=== PATIENT | male | born 1960 | race Caucasian/White ===

== ENCOUNTER 2018-11-09 14:36 | Inpatient (IN) | payer MEDICARE, MEDICAID ==
--- NOTE | 2018-11-09 15:18 | ED Physician Chart ---
ED Chief Complaint/HPI - Patient Information Date Seen:: 11/09/18 Time Seen:: 15:17 Chief Complaint:: Increased agitation History of Present Illness:: 58 yo male was brought from SNF to ER for evaluation of increased agitation, verbally abusiveness and striking out. Allergies:: Allergies Allergy/AdvReac Type Severity Reaction Status Date / Time No Known Allergies Allergy Verified 11/09/18 14:51 Vitals:: Vital Signs - 8 hr 11/09/18 14:51 Temp 98.8 F HR 90 RR 16 BP 119/74 O2 Sat % 96 ED Review of Systems - Review of Systems General/Constitutional: No fever, No chills Skin: No rash Head: No headache Eyes: No pain ENT: No earache Neck: No neck pain Cardio Vascular: No chest pain Pulmonary: No SOB GI: No nausea, No vomiting G/U: No frequency Musculoskeletal: No bone or joint pain Psychiatric: Prior psych history, Anxiety Neurological: No focal symptoms ED Past Medical History - Past Medical History Past Medical History: Dementia Social History: Non Smoker, No Alcohol, No Drug Use Psychiatricy History: Schizophrenia (paranoid), Other (Anxiety, Psychosisi) Family Medical History - Family Member Mother History Unknown: Yes ED Physical Exam - Physical Examination General/Constitutional: Awake, Alert Head: Atraumatic Eyes: PERRL, EOMI Skin: No skin lesions ENMT: Nasal exam nl Neck: No nuchal rigidity Respiratory: No Wheeze/Rhonchi/Rales Cardio Vascular: RRR, No murmur, gallop, rubs, NL S1 S2 GI: No tenderness/rebounding/guarding Extremities: normal strength in all extremities Neuro/Psych: No focal deficits ED Labs/Radiology/EKG Results - Lab Results Results: Laboratory Last Values WBC 6.7 Th/cmm (4.8-10.8) 11/09/18 15:38 RBC 4.41 Mil/cmm (4.30-5.70) 11/09/18 15:38 Hgb 14.3 gm/dL (12-16) 11/09/18 15:38 Hct 42.3 % (41.0-60) 11/09/18 15:38 MCV 96.1 fl (80-99) 11/09/18 15:38 MCH 32.4 pg (26.0-30.0) H 11/09/18 15:38 MCHC Differential 33.7 pg (28.0-36.0) 11/09/18 15:38 RDW 12.9 % (11.5-20.0) 11/09/18 15:38 Plt Count 216 Th/cmm (150-400) 11/09/18 15:38 MPV 6.5 fl 11/09/18 15:38 Neutrophils % 53.7 % (40.0-80.0) 11/09/18 15:38 Lymphocytes % 37.0 % (20.0-50.0) 11/09/18 15:38 Monocytes % 8.2 % (2.0-10.0) 11/09/18 15:38 Eosinophils % 0.7 % (0.0-5.0) 11/09/18 15:38 Basophils % 0.4 % (0.0-2.0) 11/09/18 15:38 Sodium 140 mEq/L (136-145) 11/09/18 15:38 Potassium 4.2 mEq/L (3.5-5.1) 11/09/18 15:38 Chloride 107 mEq/L (98-107) 11/09/18 15:38 Carbon Dioxide 24.6 mEq/L (21.0-31.0) 11/09/18 15:38 Anion Gap 12.6 (7.0-16.0) 11/09/18 15:38 BUN 34 mg/dL (7-25) H 11/09/18 15:38 Creatinine 0.8 mg/dL (0.7-1.3) 11/09/18 15:38 Est GFR ( Amer) > 60.0 ml/min (>90) 11/09/18 15:38 Est GFR (Non-Af Amer) > 60.0 ml/min 11/09/18 15:38 BUN/Creatinine Ratio 42.5 11/09/18 15:38 Glucose 94 mg/dL (70-105) 11/09/18 15:38 Calcium 9.3 mg/dL (8.6-10.3) 11/09/18 15:38 Total Bilirubin 0.3 mg/dL (0.3-1.0) 11/09/18 15:38 AST 13 U/L (13-39) 11/09/18 15:38 ALT 10 U/L (7-52) 11/09/18 15:38 Alkaline Phosphatase 49 U/L (34-104) 11/09/18 15:38 Troponin I 0.01 ng/mL (0.01-0.05) 11/09/18 15:38 B-Natriuretic Peptide 20.9 pg/mL (5.0-100.0) 11/09/18 15:38 Total Protein 6.3 gm/dL (6.0-8.3) 11/09/18 15:38 Albumin 4.0 gm/dL (4.2-5.5) L 11/09/18 15:38 Globulin 2.3 gm/dL 11/09/18 15:38 Albumin/Globulin Ratio 1.7 (1.0-1.8) 11/09/18 15:38 TSH 0.47 uIU/ml (0.34-5.60) 11/09/18 15:38 - Radiology Results Results: CXR: COPD, no focal consolidation - EKG Interpretations EKG Time:: 15:28 Rate & Rhythm: 69 bpm, sinus rhythm, supraventricular bigeminy Intervals: short NV interval Comments:: Left atrial enlargement ED Assessment - Assessment General Assessment: Psychosis Anxiety Dementia Schizophrenia paranoid Assessment/Comments:: CBC, CMP, BNP, PT/PTT, Trop CXR, EKG Admit to [facility] for further evaluation and management ED Septic Shock - . Is Septic Shock (SBP<90, OR Lactate>4 mmol\L) present?: No - <6hrs of presentation: Vital Signs: Vital Signs - 8 hr 11/09/18 14:51 Temp 98.8 F HR 90 RR 16 BP 119/74 O2 Sat % 96 ED Reassessment (Disposition) - Reassessment Reassessment Condition:: Unchanged - Patient Disposition Discharge/Transfer:: [facility] w/in this hosp Admitting Medical Physician:: Diego Harris Admitting Psych Physician:: Indio Davis
[2018-11-09 15:49] LABS: HEMATOCRIT 42.3 % (41.0-60); HEMOGLOBIN 14.3 gm/dL (12-16); MEAN CELL VOLUME 96.1 fl (80-99); MEAN CORPUSCULAR HEMOGLOBIN 32.4 pg (26.0-30.0); MEAN CORPUSCULAR HGB CONC 33.7 pg (28.0-36.0); RED BLOOD COUNT 4.41 Mil/cmm (4.30-5.70); RED CELL DISTRIBUTION WIDTH 12.9 % (11.5-20.0); WHITE BLOOD COUNT 6.7 Th/cmm (4.8-10.8)
[2018-11-09 15:50] LABS: % BASOPHILS 0.4 % (0.0-2.0); % EOSINOPHILS 0.7 % (0.0-5.0); % MONOCYTES 8.2 % (2.0-10.0); % NEUTROPHILS 53.7 % (40.0-80.0); LYMPHOCYTE ABSOLUTE 2.5 Th/cmm (1.5-3.0); MONOCYTE ABSOLUTE 0.5 Th/cmm (0.3-1.0); NEUTROPHILE ABSOLUTE 3.7 Th/cmm (1.8-8.0); PLATELET COUNT 216 Th/cmm (150-400)
[2018-11-09 16:24] LABS: ANION GAP 12.6 (7.0-16.0); BUN - UREA NITROGEN 34 mg/dL (7-25); CARBON DIOXIDE 24.6 mEq/L (21.0-31.0); CHLORIDE 107 mEq/L (98-107); CREATININE - SERUM 0.8 mg/dL (0.7-1.3); GFR AFRICAN-AMERICAN > 60.0 ml/min (>90); GFR NON AFRICAN-AMERICAN > 60.0 ml/min; GLUCOSE 94 mg/dL (70-105); POTASSIUM SERUM 4.2 mEq/L (3.5-5.1); SODIUM SERUM 140 mEq/L (136-145)
[2018-11-09 16:25] LABS: ALB/GLOB RATIO 1.7 (1.0-1.8); ALKALINE PHOSPHATASE 49 U/L (34-104); BILIRUBIN,TOTAL 0.3 mg/dL (0.3-1.0); CALCIUM SERUM 9.3 mg/dL (8.6-10.3); SGOT 13 U/L (13-39); SGPT/ALT 10 U/L (7-52); TOTAL PROTEIN,SERUM 6.3 gm/dL (6.0-8.3)
[2018-11-09 19:57] VITALS: BP 114/70
--- NOTE | 2018-11-09 20:32 | Psychiatric Evaluation ---
DATE OF SERVICE: 11/09/2018 PSYCHIATRIC EVALUATION AND EXAMINATION IDENTIFYING DATA: The patient is a 58-year-old male, resident of [facility]. Information was obtained by directly interviewing the patient as well as reviewing the admission papers and they are reliable. JUSTIFICATION FOR HOSPITALIZATION: The patient is admitted on a voluntary basis in view of his acute psychosis. CHIEF COMPLAINT: "I don't understand ____ one causing the problem." HISTORY OF PRESENT ILLNESS: This is the first psychiatric hospitalization to [facility] for this patient, who is reported to have been out of control and has been screaming and yelling and easily agitated and could not be contained and redirected and hence the patient has been referred over here for stabilization. The patient is reported to have been diagnosed to have schizophrenia, chronic paranoid type and has been maintained on Seroquel. The patient's sleep is noted to be poor. Appetite is noted to be fair. PAST PSYCHIATRIC HISTORY: Details are not known. MEDICAL HISTORY AND PHYSICAL EXAMINATION: Requested to be done by Dr. Diego Harris. SUBSTANCE ABUSE HISTORY: None. PHYSICAL OR SEXUAL ABUSE HISTORY: Details are not known. LEGAL PROBLEMS: None at this time. STRENGTH AND ASSETS: The patient is motivated. MENTAL STATUS EXAMINATION: The patient is a 58-year-old, thin built, superficially cooperative, mumbling to self, not making much sense. This patient is noted to be coherent, but speaks in a low tone. The patient has paranoid delusions, but denies any command hallucinations. Insight and judgment are noted to be very much impaired. Impulse control is noted to be limited. Coping skills are also noted to be limited. The patient is alert and oriented to time, place, person, and situation. The patient is stating that he could not figure it out why he has to be in here. The patient's behavior is reported to be a danger to others. The patient is not suicidal at this time. DIAGNOSTIC IMPRESSION: AXIS I: Schizophrenia, chronic paranoid type with acute exacerbation. AXIS II: None. AXIS III: None. IMMEDIATE TREATMENT PLAN: The patient is going to be observed on the inpatient unit, provided with supportive psychotherapy. The patient is going to be closely monitored. Once stabilized, the patient is going to be discharged to [facility] to be followed up on an outpatient basis. JOB# [id number]
[2018-11-09 21:33] LABS: CHOLESTEROL 153 mg/dL (<200); HDL -HIGH DENSITY LIPOPROTEIN 47 mg/dL (23-92); TRIGLYCERIDES 106 mg/dL (<150)
[2018-11-10 06:05] LABS: A1C 5.5 % (4.8-5.6)
[2018-11-10] MEDS: Benztropine 1 MG TAB PO SCH ×2 (08:23→16:44)
--- NOTE | 2018-11-10 09:23 | Diagnostic Imaging Report ---
CHEST X-RAY: AP view INDICATION: Shortness of breath COMPARISON: None FINDINGS: There is no focal consolidation or pleural effusions The heart is normal in size. Atherosclerosis is noted. There is rightward convexity of the upper thoracic spine which may be due to positioning versus scoliosis. IMPRESSION: No focal consolidation identified. There may be COPD. Atherosclerotic vascular disease.
--- NOTE | 2018-11-10 13:34 | History & Physical ---
ADMIT DATE: 11/09/2018 CHIEF COMPLAINT: Medical evaluation and clearance. HISTORY OF PRESENT ILLNESS: This is a 58-year-old male with history hyperglycemia, psych disorder, dementia, admitted from [facility] secondary to agitated behavior. The patient denies chest pain, shortness of breath. PAST MEDICAL HISTORY: As mentioned in the history of present illness. PAST SURGICAL HISTORY: Abdominal surgery. ALLERGIES: No known drug allergies. MEDICATIONS: The patient's Depakote, Cogentin, Tylenol, Seroquel, simvastatin, niacin, Haldol. FAMILY HISTORY: Noncontributory. SOCIAL HISTORY: The patient is an avid smoker. Does not drink or intravenous drug use, unemployed. REVIEW OF SYSTEMS: GENERAL: Complains not feeling well. HEENT: No blurred vision or pain. LUNGS: No diagnosis of COPD or asthma. Chronic smoker. HEART: Denies hypertension or coronary artery disease. ABDOMEN: No nausea, vomiting, pain. GENITOURINARY: The patient denies increased frequency or dysuria. NEUROLOGIC: No headache, seizure or syncope. PSYCHIATRIC: See above. PHYSICAL EXAMINATION: VITAL SIGNS: Blood pressure 105/64, respirations 20, pulse 60, temperature 97.8. GENERAL: Middle-aged male, appears older. NECK: Supple. LUNGS: Equal breath sounds, otherwise clear to auscultation. HEART: Regular rate and rhythm without appreciable murmur. ABDOMEN: Soft, nontender. Positive bowel sounds. ____. EXTREMITIES: No clubbing, cyanosis or edema. NEUROLOGIC: The patient is alert, awake, ____. Motor and sensory were equal. Gait is within normal range. LABORATORY DATA: WBC 6, hemoglobin 14, platelets 216. Sodium 140, potassium 4.2, BUN 34, creatinine 0.8. Albumin 4.0. TSH within normal range. ASSESSMENT AND PLAN: 1. Renal insufficiency. 2. Dementia. 3. Schizoaffective disorder. 4. Hypercholesterolemia 5. Continue the patient on statin medications. 6. We will review the patient's laboratory. 7. Continue low fat, low cholesterol diet. The patient was counseled to abstain from further smoking. We will continue to follow with you. JOB# [id number]
--- NOTE | 2018-11-10 21:17 | Progress Notes ---
DATE: 11/10/2018 PSYCHIATRIC PROGRESS NOTE SUBJECTIVE: Staff was spoken to. The patient is interviewed. Mood is noted to be irritable. Affect is constricted. The patient is responding to internal stimuli. The patient is not making much sense. The patient has no insight into his illness. The patient has been isolative and withdrawn. ASSESSMENT: The patient is still grossly psychotic. PLAN: To continue the patient with supportive therapy and current medications and follow up. [facility]# [id number]
[2018-11-11] MEDS: Benztropine 1 MG TAB PO SCH ×2 (08:53→16:30)
[2018-11-11] MEDS ORDERED: NIACIN 500 MG PO SCH (09:00)
--- NOTE | 2018-11-11 12:34 | Internal Medicine Prog Note ---
Internal Medicine Subjective - Subjective Patient seen and examined:: with staff, chart reviewed Patient is:: awake, verbal, interactive Patient Complaints of:: sore throat Per staff patient has:: no adverse event, no episodes of fall, poor appetite Internal Medicine Objective - Results Result Diagrams: 11/09/18 15:38 11/09/18 15:38 Recent Labs: Laboratory Last Values WBC 6.7 Th/cmm (4.8-10.8) 11/09/18 15:38 RBC 4.41 Mil/cmm (4.30-5.70) 11/09/18 15:38 Hgb 14.3 gm/dL (12-16) 11/09/18 15:38 Hct 42.3 % (41.0-60) 11/09/18 15:38 MCV 96.1 fl (80-99) 11/09/18 15:38 MCH 32.4 pg (26.0-30.0) H 11/09/18 15:38 MCHC Differential 33.7 pg (28.0-36.0) 11/09/18 15:38 RDW 12.9 % (11.5-20.0) 11/09/18 15:38 Plt Count 216 Th/cmm (150-400) 11/09/18 15:38 MPV 6.5 fl 11/09/18 15:38 Neutrophils % 53.7 % (40.0-80.0) 11/09/18 15:38 Lymphocytes % 37.0 % (20.0-50.0) 11/09/18 15:38 Monocytes % 8.2 % (2.0-10.0) 11/09/18 15:38 Eosinophils % 0.7 % (0.0-5.0) 11/09/18 15:38 Basophils % 0.4 % (0.0-2.0) 11/09/18 15:38 Sodium 140 mEq/L (136-145) 11/09/18 15:38 Potassium 4.2 mEq/L (3.5-5.1) 11/09/18 15:38 Chloride 107 mEq/L (98-107) 11/09/18 15:38 Carbon Dioxide 24.6 mEq/L (21.0-31.0) 11/09/18 15:38 Anion Gap 12.6 (7.0-16.0) 11/09/18 15:38 BUN 34 mg/dL (7-25) H 11/09/18 15:38 Creatinine 0.8 mg/dL (0.7-1.3) 11/09/18 15:38 Est GFR ( Amer) > 60.0 ml/min (>90) 11/09/18 15:38 Est GFR (Non-Af Amer) > 60.0 ml/min 11/09/18 15:38 BUN/Creatinine Ratio 42.5 11/09/18 15:38 Glucose 94 mg/dL (70-105) 11/09/18 15:38 Calcium 9.3 mg/dL (8.6-10.3) 11/09/18 15:38 Total Bilirubin 0.3 mg/dL (0.3-1.0) 11/09/18 15:38 AST 13 U/L (13-39) 11/09/18 15:38 ALT 10 U/L (7-52) 11/09/18 15:38 Alkaline Phosphatase 49 U/L (34-104) 11/09/18 15:38 Troponin I 0.01 ng/mL (0.01-0.05) 11/09/18 15:38 B-Natriuretic Peptide 20.9 pg/mL (5.0-100.0) 11/09/18 15:38 Total Protein 6.3 gm/dL (6.0-8.3) 11/09/18 15:38 Albumin 4.0 gm/dL (4.2-5.5) L 11/09/18 15:38 Globulin 2.3 gm/dL 11/09/18 15:38 Albumin/Globulin Ratio 1.7 (1.0-1.8) 11/09/18 15:38 Triglycerides 106 mg/dL (<150) 11/09/18 15:38 Cholesterol 153 mg/dL (<200) 11/09/18 15:38 LDL Cholesterol Direct 89 mg/dL (75-193) 11/09/18 15:38 HDL Cholesterol 47 mg/dL (23-92) 11/09/18 15:38 TSH 0.47 uIU/ml (0.34-5.60) 11/09/18 15:38 - Physical Exam Vitals and I&O: Vital Signs Temp 97.4 F 11/11/18 06:10 Pulse 67 11/11/18 06:10 Resp 20 11/11/18 08:00 BP 115/56 11/11/18 06:10 Pulse Ox 98 11/11/18 06:10 Intake & Output 11/10/18 11/11/18 11/11/18 18:59 06:59 18:59 Intake Total 240 Balance 240 Intake: Oral 240 Other: # Voids 2 # Bowel Movements 0 Active Medications: Current Medications Acetaminophen (Tylenol) 650 mg PO Q4HR PRN PRN Reason: Mild Pain / Temp above 100 Stop: 01/08/19 20:14 Benztropine Mesylate (Cogentin) 1 mg PO BID SADAF Stop: 01/09/19 08:59 Last Admin: 11/11/18 08:53 Dose: 1 mg Divalproex Sodium (Depakote Dr) 750 mg PO BID SADAF; Protocol Stop: 01/09/19 08:59 Last Admin: 11/11/18 08:54 Dose: 750 mg Lorazepam (Ativan) 0.5 mg PO Q4HR PRN; Protocol PRN Reason: Anxiety Stop: 12/09/18 20:14 Niacin (Vitamin B3) 500 mg PO DAILY SADAF Stop: 01/10/19 08:59 Last Admin: 11/11/18 08:53 Dose: 500 mg Quetiapine Fumarate (Seroquel) 400 mg PO HS SADAF; Protocol Stop: 01/08/19 20:59 Last Admin: 11/10/18 20:42 Dose: 400 mg Simvastatin (Zocor) 20 mg PO HS SADAF; Protocol Stop: 01/09/19 20:59 Last Admin: 11/10/18 20:42 Dose: 20 mg Zolpidem Tartrate (Ambien) 5 mg PO HS PRN PRN Reason: Insomnia Stop: 01/08/19 20:14 General: alert HEENT: NC/AT, PERRLA, EOMI Neck: Supple, No JVD Lungs: wheezing Cardiovascular: RRR, Normal S1, Normal S2 Abdomen: soft, non-tender, thin Extremities: excoriation Neurological: no change Internal Medicine Assmt/Plan - Assessment Assessment: ASSESSMENT AND PLAN: 1. Renal insufficiency. 2. Dementia. 3. Schizoaffective disorder. 4. Hypercholesterolemia - Plan Plan: PLAN: Continue the patient on statin medications. We will review the patient's laboratory. Continue low fat, low cholesterol diet. The patient was counseled to abstain from further smoking. We will continue to follow with you.
--- NOTE | 2018-11-11 20:39 | Consultation ---
DATE OF CONSULTATION: 11/11/2018 REFERRING PHYSICIAN: Magaly Hensley M.D. TYPE OF CONSULTATION: Psychology. HISTORY OF PRESENT ILLNESS: The patient is a 58-year-old male. The following is by record review and by the patient's self report. The patient is a resident of [facility]. The patient is being admitted due to acute psychosis. Upon interview, the patient stated that he does not understand why he is being hospitalized and that he does not understand why he has caused a problem. Staff at the patient's facility reports that he has been screaming and yelling and his behavior was easily agitated and out of control as well as uncontainable. The patient was referred here for stabilization. The patient did not answer the question about suicidal ideation or homicidal ideation, plan or intention. The patient was unable to verbally contract for safety. PAST MEDICAL HISTORY: Please see history and physical by Dr. Harris. PAST PSYCHIATRIC HISTORY: Records indicate the patient has a history of schizophrenia, chronic paranoid type. PAST PSYCHIATRIC HISTORY: The patient has had previous psychiatric hospitalizations. The patient is under the care of Dr. Davis at his placement. The patient has a history of schizophrenia, paranoid type. SUBSTANCE ABUSE HISTORY: The patient denied any history of alcohol, tobacco or illicit drug use. PSYCHOSOCIAL HISTORY: The patient did not answer questions about occupational history or educational history. The patient stated that he has never been and that he has no children. The patient stated no specific rastafarian affiliation. The patient denied any history of physical or sexual abuse or any current legal problems. MENTAL STATUS EXAMINATION: The patient appears to be his stated age. The patient's attitude is superficially cooperative. The patient's eye contact is poor. Speech is soft and slow. The patient is mumbling to himself. The patient is not making much sense during this clinical interview; however, the patient is able to give concrete yes or no answers at times to the clinical interview questions. Mood is irritable. Affect is constricted. Thought process shows to be confused. The patient did not answer the questions about experiencing any auditory or visual hallucinations. There is evidence of some paranoid ideation present. He denied any suicidal ideation, plan or intention. The patient's behavior has been redirectable on the unit. Impulse control is poor. Concentration is poor. Sensorium is alert and oriented x 3. The patient has poor insight into his illness and does not understand why he is being hospitalized. The patient did not participate in the memory assessment. The patient did not participate in the interpretation of proverbs. Insight is poor. Judgment is compromised. DIAGNOSTIC IMPRESSION: AXIS I: History of schizophrenia, chronic paranoid type, in acute exacerbation. AXIS II: Deferred. AXIS III: Per Dr. Harris. TREATMENT PLAN: The patient has been seen by Dr. Hensley for psychiatric evaluation and for the management of the patient's psychotropic medications. We will provide supportive psychotherapy to include reality orientation, differentiation and integration. We will provide daily opportunities for the patient to be able to verbally contract for safety, i.e., no harm to others. The patient's behavior had been reported by the staff as possibly a danger to others. We will provide limit setting. We will provide motivational enhancement for the patient to become compliant and stay compliant with all aspects of his care and treatment. We will provide coping strategies for phase of life issues as well as for chronic severe mental illness. Thank you Dr. Hensley for this consult and the opportunity to participate in this patient's care. JOB# [id number] TAY
--- NOTE | 2018-11-11 20:58 | Progress Notes ---
DATE: 11/11/2018 PSYCHIATRIC PROGRESS NOTE SUBJECTIVE: Staff was spoken to. The patient is interviewed. Mood is noted to be irritable. Affect is constricted. The patient is still responding to internal stimuli. Coping skills at this time are noted to be poor. Insight and judgment are also noted to be limited. The patient has been having difficult time to cope with the stress. The patient is pacing most of the time on the unit. ASSESSMENT: The patient is still psychotic. PLAN: To continue the patient with the supportive therapy and encouraged the patient to verbalize the concerns rather than to act out. [facility]# [id number]
[2018-11-12] MEDS: Benztropine 1 MG TAB PO SCH ×2 (09:40→17:31)
--- NOTE | 2018-11-12 14:00 | Internal Medicine Prog Note ---
Internal Medicine Subjective - Subjective Patient seen and examined:: with staff, chart reviewed Patient is:: awake, verbal, interactive Patient Complaints of:: sore throat Per staff patient has:: no adverse event, no episodes of fall, poor appetite Internal Medicine Objective - Results Result Diagrams: 11/09/18 15:38 11/09/18 15:38 Recent Labs: Laboratory Last Values WBC 6.7 Th/cmm (4.8-10.8) 11/09/18 15:38 RBC 4.41 Mil/cmm (4.30-5.70) 11/09/18 15:38 Hgb 14.3 gm/dL (12-16) 11/09/18 15:38 Hct 42.3 % (41.0-60) 11/09/18 15:38 MCV 96.1 fl (80-99) 11/09/18 15:38 MCH 32.4 pg (26.0-30.0) H 11/09/18 15:38 MCHC Differential 33.7 pg (28.0-36.0) 11/09/18 15:38 RDW 12.9 % (11.5-20.0) 11/09/18 15:38 Plt Count 216 Th/cmm (150-400) 11/09/18 15:38 MPV 6.5 fl 11/09/18 15:38 Neutrophils % 53.7 % (40.0-80.0) 11/09/18 15:38 Lymphocytes % 37.0 % (20.0-50.0) 11/09/18 15:38 Monocytes % 8.2 % (2.0-10.0) 11/09/18 15:38 Eosinophils % 0.7 % (0.0-5.0) 11/09/18 15:38 Basophils % 0.4 % (0.0-2.0) 11/09/18 15:38 Sodium 140 mEq/L (136-145) 11/09/18 15:38 Potassium 4.2 mEq/L (3.5-5.1) 11/09/18 15:38 Chloride 107 mEq/L (98-107) 11/09/18 15:38 Carbon Dioxide 24.6 mEq/L (21.0-31.0) 11/09/18 15:38 Anion Gap 12.6 (7.0-16.0) 11/09/18 15:38 BUN 34 mg/dL (7-25) H 11/09/18 15:38 Creatinine 0.8 mg/dL (0.7-1.3) 11/09/18 15:38 Est GFR ( Amer) > 60.0 ml/min (>90) 11/09/18 15:38 Est GFR (Non-Af Amer) > 60.0 ml/min 11/09/18 15:38 BUN/Creatinine Ratio 42.5 11/09/18 15:38 Glucose 94 mg/dL (70-105) 11/09/18 15:38 Calcium 9.3 mg/dL (8.6-10.3) 11/09/18 15:38 Total Bilirubin 0.3 mg/dL (0.3-1.0) 11/09/18 15:38 AST 13 U/L (13-39) 11/09/18 15:38 ALT 10 U/L (7-52) 11/09/18 15:38 Alkaline Phosphatase 49 U/L (34-104) 11/09/18 15:38 Troponin I 0.01 ng/mL (0.01-0.05) 11/09/18 15:38 B-Natriuretic Peptide 20.9 pg/mL (5.0-100.0) 11/09/18 15:38 Total Protein 6.3 gm/dL (6.0-8.3) 11/09/18 15:38 Albumin 4.0 gm/dL (4.2-5.5) L 11/09/18 15:38 Globulin 2.3 gm/dL 11/09/18 15:38 Albumin/Globulin Ratio 1.7 (1.0-1.8) 11/09/18 15:38 Triglycerides 106 mg/dL (<150) 11/09/18 15:38 Cholesterol 153 mg/dL (<200) 11/09/18 15:38 LDL Cholesterol Direct 89 mg/dL (75-193) 11/09/18 15:38 HDL Cholesterol 47 mg/dL (23-92) 11/09/18 15:38 TSH 0.47 uIU/ml (0.34-5.60) 11/09/18 15:38 - Physical Exam Vitals and I&O: Vital Signs Temp 97.8 F 11/11/18 20:56 Pulse 68 11/11/18 20:56 Resp 19 11/12/18 08:00 BP 112/58 11/11/18 20:56 Pulse Ox 98 11/11/18 20:56 Intake & Output 11/11/18 11/12/18 11/12/18 18:59 06:59 18:59 Intake Total 950 200 Balance 950 200 Intake: Oral 950 200 Other: # Voids 4 # Bowel Movements 1 Active Medications: Current Medications Acetaminophen (Tylenol) 650 mg PO Q4HR PRN PRN Reason: Mild Pain / Temp above 100 Stop: 01/08/19 20:14 Benztropine Mesylate (Cogentin) 1 mg PO BID SADAF Stop: 01/09/19 08:59 Last Admin: 11/12/18 09:40 Dose: Not Given Divalproex Sodium (Depakote Dr) 750 mg PO BID SADAF; Protocol Stop: 01/09/19 08:59 Last Admin: 11/12/18 09:41 Dose: Not Given Lorazepam (Ativan) 0.5 mg PO Q4HR PRN; Protocol PRN Reason: Anxiety Stop: 12/09/18 20:14 Niacin (Vitamin B3) 500 mg PO DAILY SADAF Stop: 01/10/19 08:59 Last Admin: 11/12/18 09:40 Dose: Not Given Quetiapine Fumarate (Seroquel) 400 mg PO HS SADAF; Protocol Stop: 01/08/19 20:59 Last Admin: 11/11/18 20:53 Dose: 400 mg Simvastatin (Zocor) 20 mg PO HS SADAF; Protocol Stop: 01/09/19 20:59 Last Admin: 11/11/18 20:53 Dose: 20 mg Zolpidem Tartrate (Ambien) 5 mg PO HS PRN PRN Reason: Insomnia Stop: 01/08/19 20:14 General: alert HEENT: NC/AT, PERRLA, EOMI Neck: Supple, No JVD Lungs: wheezing Cardiovascular: RRR, Normal S1, Normal S2 Abdomen: soft, non-tender, thin Extremities: excoriation Neurological: no change Internal Medicine Assmt/Plan - Assessment Assessment: ASSESSMENT AND PLAN: 1. Renal insufficiency. 2. Dementia. 3. Schizoaffective disorder. 4. Hypercholesterolemia - Plan Plan: PLAN: Continue the patient on statin medications. We will review the patient's laboratory. Continue low fat, low cholesterol diet. The patient was counseled to abstain from further smoking. We will continue to follow with you.
--- NOTE | 2018-11-12 18:48 | Progress Notes ---
DATE: 11/12/2018 SUBJECTIVE: Staff was spoken to. The patient is interviewed. Mood is noted to be irritable. Coping skills at this time are noted to be poor. Insight and judgment are noted to be poor. The patient has been getting easily agitated and the patient has been given a dose of Ativan and has been able to calm down. ASSESSMENT: The patient is still psychotic. PLAN: To continue the patient with the supportive therapy and followup. [facility]# [id number]
[2018-11-13] MEDS: Benztropine 1 MG TAB PO SCH ×2 (08:58→16:48)
--- NOTE | 2018-11-13 14:04 | Internal Medicine Prog Note ---
Internal Medicine Subjective - Subjective Patient seen and examined:: with staff, chart reviewed Patient is:: awake, verbal, interactive Patient Complaints of:: sore throat Per staff patient has:: no adverse event, no episodes of fall, poor appetite Internal Medicine Objective - Results Result Diagrams: 11/09/18 15:38 11/09/18 15:38 Recent Labs: Laboratory Last Values WBC 6.7 Th/cmm (4.8-10.8) 11/09/18 15:38 RBC 4.41 Mil/cmm (4.30-5.70) 11/09/18 15:38 Hgb 14.3 gm/dL (12-16) 11/09/18 15:38 Hct 42.3 % (41.0-60) 11/09/18 15:38 MCV 96.1 fl (80-99) 11/09/18 15:38 MCH 32.4 pg (26.0-30.0) H 11/09/18 15:38 MCHC Differential 33.7 pg (28.0-36.0) 11/09/18 15:38 RDW 12.9 % (11.5-20.0) 11/09/18 15:38 Plt Count 216 Th/cmm (150-400) 11/09/18 15:38 MPV 6.5 fl 11/09/18 15:38 Neutrophils % 53.7 % (40.0-80.0) 11/09/18 15:38 Lymphocytes % 37.0 % (20.0-50.0) 11/09/18 15:38 Monocytes % 8.2 % (2.0-10.0) 11/09/18 15:38 Eosinophils % 0.7 % (0.0-5.0) 11/09/18 15:38 Basophils % 0.4 % (0.0-2.0) 11/09/18 15:38 Sodium 140 mEq/L (136-145) 11/09/18 15:38 Potassium 4.2 mEq/L (3.5-5.1) 11/09/18 15:38 Chloride 107 mEq/L (98-107) 11/09/18 15:38 Carbon Dioxide 24.6 mEq/L (21.0-31.0) 11/09/18 15:38 Anion Gap 12.6 (7.0-16.0) 11/09/18 15:38 BUN 34 mg/dL (7-25) H 11/09/18 15:38 Creatinine 0.8 mg/dL (0.7-1.3) 11/09/18 15:38 Est GFR ( Amer) > 60.0 ml/min (>90) 11/09/18 15:38 Est GFR (Non-Af Amer) > 60.0 ml/min 11/09/18 15:38 BUN/Creatinine Ratio 42.5 11/09/18 15:38 Glucose 94 mg/dL (70-105) 11/09/18 15:38 Calcium 9.3 mg/dL (8.6-10.3) 11/09/18 15:38 Total Bilirubin 0.3 mg/dL (0.3-1.0) 11/09/18 15:38 AST 13 U/L (13-39) 11/09/18 15:38 ALT 10 U/L (7-52) 11/09/18 15:38 Alkaline Phosphatase 49 U/L (34-104) 11/09/18 15:38 Troponin I 0.01 ng/mL (0.01-0.05) 11/09/18 15:38 B-Natriuretic Peptide 20.9 pg/mL (5.0-100.0) 11/09/18 15:38 Total Protein 6.3 gm/dL (6.0-8.3) 11/09/18 15:38 Albumin 4.0 gm/dL (4.2-5.5) L 11/09/18 15:38 Globulin 2.3 gm/dL 11/09/18 15:38 Albumin/Globulin Ratio 1.7 (1.0-1.8) 11/09/18 15:38 Triglycerides 106 mg/dL (<150) 11/09/18 15:38 Cholesterol 153 mg/dL (<200) 11/09/18 15:38 LDL Cholesterol Direct 89 mg/dL (75-193) 11/09/18 15:38 HDL Cholesterol 47 mg/dL (23-92) 11/09/18 15:38 TSH 0.47 uIU/ml (0.34-5.60) 11/09/18 15:38 - Physical Exam Vitals and I&O: Vital Signs Temp 97.4 F 11/13/18 06:20 Pulse 64 11/13/18 06:20 Resp 20 11/13/18 10:33 BP 102/63 11/13/18 06:20 Pulse Ox 97 11/13/18 06:20 Intake & Output 11/12/18 11/13/18 11/13/18 18:59 06:59 18:59 Intake Total 1200 120 Balance 1200 120 Intake: Oral 1200 120 Other: # Voids 2 # Bowel Movements 1 Stool Characteristics Formed Brown Active Medications: Current Medications Acetaminophen (Tylenol) 650 mg PO Q4HR PRN PRN Reason: Mild Pain / Temp above 100 Stop: 01/08/19 20:14 Benztropine Mesylate (Cogentin) 1 mg PO BID SADAF Stop: 01/09/19 08:59 Last Admin: 11/13/18 08:58 Dose: 1 mg Divalproex Sodium (Depakote Dr) 750 mg PO BID SADAF; Protocol Stop: 01/09/19 08:59 Last Admin: 11/13/18 08:57 Dose: 750 mg Lorazepam (Ativan) 0.5 mg PO Q4HR PRN; Protocol PRN Reason: Anxiety Stop: 12/09/18 20:14 Last Admin: 11/13/18 08:57 Dose: 0.5 mg Niacin (Vitamin B3) 500 mg PO DAILY SADAF Stop: 01/10/19 08:59 Last Admin: 11/13/18 08:57 Dose: 500 mg Quetiapine Fumarate (Seroquel) 400 mg PO HS SADAF; Protocol Stop: 01/08/19 20:59 Last Admin: 11/12/18 21:30 Dose: 400 mg Simvastatin (Zocor) 20 mg PO HS SADAF; Protocol Stop: 01/09/19 20:59 Last Admin: 11/12/18 21:31 Dose: 20 mg Zolpidem Tartrate (Ambien) 5 mg PO HS PRN PRN Reason: Insomnia Stop: 01/08/19 20:14 General: alert HEENT: NC/AT, PERRLA, EOMI Neck: Supple, No JVD Lungs: wheezing Cardiovascular: RRR, Normal S1, Normal S2 Abdomen: soft, non-tender, thin Extremities: excoriation Neurological: no change Internal Medicine Assmt/Plan - Assessment Assessment: ASSESSMENT AND PLAN: 1. Renal insufficiency. 2. Dementia. 3. Schizoaffective disorder. 4. Hypercholesterolemia - Plan Plan: PLAN: Continue the patient on statin medications. We will review the patient's laboratory. Continue low fat, low cholesterol diet. The patient was counseled to abstain from further smoking. We will continue to follow with you.
--- NOTE | 2018-11-13 14:05 | Progress Notes ---
DATE: 11/13/2018 SUBJECTIVE: Staff was spoken to. The patient is interviewed. Mood is noted to be irritable. Affect is constricted. Coping skills are noted to be still poor. The patient continues to be paranoid and pacing most of the time on the unit. The patient has no insight into his illness. The patient is still responding to the internal stimuli. The patient is currently on Seroquel, which she has been getting at 400 mg and the patient is going to be continued with these things and followed up. ASSESSMENT: The patient is still psychotic. PLAN: To continue the patient with the supportive therapy and followup. JOB# [id number]
[2018-11-14] MEDS: Benztropine 1 MG TAB PO SCH ×2 (08:02→16:42)
--- NOTE | 2018-11-14 12:39 | Internal Medicine Prog Note ---
Internal Medicine Subjective - Subjective Patient seen and examined:: with staff, chart reviewed Patient is:: awake, verbal, interactive Patient Complaints of:: sore throat Per staff patient has:: no adverse event, no episodes of fall, poor appetite Internal Medicine Objective - Results Result Diagrams: 11/09/18 15:38 11/09/18 15:38 Recent Labs: Laboratory Last Values WBC 6.7 Th/cmm (4.8-10.8) 11/09/18 15:38 RBC 4.41 Mil/cmm (4.30-5.70) 11/09/18 15:38 Hgb 14.3 gm/dL (12-16) 11/09/18 15:38 Hct 42.3 % (41.0-60) 11/09/18 15:38 MCV 96.1 fl (80-99) 11/09/18 15:38 MCH 32.4 pg (26.0-30.0) H 11/09/18 15:38 MCHC Differential 33.7 pg (28.0-36.0) 11/09/18 15:38 RDW 12.9 % (11.5-20.0) 11/09/18 15:38 Plt Count 216 Th/cmm (150-400) 11/09/18 15:38 MPV 6.5 fl 11/09/18 15:38 Neutrophils % 53.7 % (40.0-80.0) 11/09/18 15:38 Lymphocytes % 37.0 % (20.0-50.0) 11/09/18 15:38 Monocytes % 8.2 % (2.0-10.0) 11/09/18 15:38 Eosinophils % 0.7 % (0.0-5.0) 11/09/18 15:38 Basophils % 0.4 % (0.0-2.0) 11/09/18 15:38 Sodium 140 mEq/L (136-145) 11/09/18 15:38 Potassium 4.2 mEq/L (3.5-5.1) 11/09/18 15:38 Chloride 107 mEq/L (98-107) 11/09/18 15:38 Carbon Dioxide 24.6 mEq/L (21.0-31.0) 11/09/18 15:38 Anion Gap 12.6 (7.0-16.0) 11/09/18 15:38 BUN 34 mg/dL (7-25) H 11/09/18 15:38 Creatinine 0.8 mg/dL (0.7-1.3) 11/09/18 15:38 Est GFR ( Amer) > 60.0 ml/min (>90) 11/09/18 15:38 Est GFR (Non-Af Amer) > 60.0 ml/min 11/09/18 15:38 BUN/Creatinine Ratio 42.5 11/09/18 15:38 Glucose 94 mg/dL (70-105) 11/09/18 15:38 Calcium 9.3 mg/dL (8.6-10.3) 11/09/18 15:38 Total Bilirubin 0.3 mg/dL (0.3-1.0) 11/09/18 15:38 AST 13 U/L (13-39) 11/09/18 15:38 ALT 10 U/L (7-52) 11/09/18 15:38 Alkaline Phosphatase 49 U/L (34-104) 11/09/18 15:38 Troponin I 0.01 ng/mL (0.01-0.05) 11/09/18 15:38 B-Natriuretic Peptide 20.9 pg/mL (5.0-100.0) 11/09/18 15:38 Total Protein 6.3 gm/dL (6.0-8.3) 11/09/18 15:38 Albumin 4.0 gm/dL (4.2-5.5) L 11/09/18 15:38 Globulin 2.3 gm/dL 11/09/18 15:38 Albumin/Globulin Ratio 1.7 (1.0-1.8) 11/09/18 15:38 Triglycerides 106 mg/dL (<150) 11/09/18 15:38 Cholesterol 153 mg/dL (<200) 11/09/18 15:38 LDL Cholesterol Direct 89 mg/dL (75-193) 11/09/18 15:38 HDL Cholesterol 47 mg/dL (23-92) 11/09/18 15:38 TSH 0.47 uIU/ml (0.34-5.60) 11/09/18 15:38 - Physical Exam Vitals and I&O: Vital Signs Temp 97 F 11/14/18 06:34 Pulse 62 11/14/18 06:34 Resp 20 11/14/18 06:34 BP 103/61 11/14/18 06:34 Pulse Ox 98 11/14/18 06:34 Intake & Output 11/13/18 11/14/18 11/14/18 18:59 06:59 18:59 Intake Total 180 Balance 180 Intake: Oral 180 Other: # Voids 1 # Bowel Movements 1 Stool Characteristics Formed Brown Active Medications: Current Medications Acetaminophen (Tylenol) 650 mg PO Q4HR PRN PRN Reason: Mild Pain / Temp above 100 Stop: 01/08/19 20:14 Benztropine Mesylate (Cogentin) 1 mg PO BID SADAF Stop: 01/09/19 08:59 Last Admin: 11/14/18 08:02 Dose: 1 mg Divalproex Sodium (Depakote Dr) 750 mg PO BID SADAF; Protocol Stop: 01/09/19 08:59 Last Admin: 11/14/18 08:02 Dose: 750 mg Lorazepam (Ativan) 0.5 mg PO Q4HR PRN; Protocol PRN Reason: Anxiety Stop: 12/09/18 20:14 Last Admin: 11/13/18 08:57 Dose: 0.5 mg Niacin (Vitamin B3) 500 mg PO DAILY SADAF Stop: 01/10/19 08:59 Last Admin: 11/14/18 08:02 Dose: 500 mg Quetiapine Fumarate (Seroquel) 400 mg PO HS SADAF; Protocol Stop: 01/08/19 20:59 Last Admin: 11/13/18 20:46 Dose: 400 mg Simvastatin (Zocor) 20 mg PO HS SADAF; Protocol Stop: 01/09/19 20:59 Last Admin: 11/13/18 20:46 Dose: 20 mg Zolpidem Tartrate (Ambien) 5 mg PO HS PRN PRN Reason: Insomnia Stop: 01/08/19 20:14 General: alert HEENT: NC/AT, PERRLA, EOMI Neck: Supple, No JVD Lungs: wheezing Cardiovascular: RRR, Normal S1, Normal S2 Abdomen: soft, non-tender, thin Extremities: excoriation Neurological: no change Internal Medicine Assmt/Plan - Assessment Assessment: ASSESSMENT AND PLAN: 1. Renal insufficiency. 2. Dementia. 3. Schizoaffective disorder. 4. Hypercholesterolemia - Plan Plan: PLAN: Continue the patient on statin medications. We will review the patient's laboratory. Continue low fat, low cholesterol diet. The patient was counseled to abstain from further smoking. We will continue to follow with you.
--- NOTE | 2018-11-15 01:47 | Progress Notes ---
DATE: 11/14/2018 SUBJECTIVE: Staff was spoken to. The patient is interviewed. Mood is noted to be anxious. Insight and judgment are noted to be improving. Impulse control seems to be fair today. The patient is still responding to internal stimuli. No side effects to the medications are noted. The patient is reluctant to participate in any of the group. The patient is currently on 400 mg of the Seroquel and I have requested the patient to have the valproic acid level and it is still pending at this time. JOB# [id number]
[2018-11-15] MEDS: Benztropine 1 MG TAB PO SCH ×2 (08:27→17:18)
--- NOTE | 2018-11-15 12:17 | Internal Medicine Prog Note ---
Internal Medicine Subjective - Subjective Patient seen and examined:: with staff, chart reviewed Patient is:: awake, verbal, interactive Patient Complaints of:: sore throat Per staff patient has:: no adverse event, no episodes of fall, poor appetite Internal Medicine Objective - Results Result Diagrams: 11/09/18 15:38 11/09/18 15:38 Recent Labs: Laboratory Last Values WBC 6.7 Th/cmm (4.8-10.8) 11/09/18 15:38 RBC 4.41 Mil/cmm (4.30-5.70) 11/09/18 15:38 Hgb 14.3 gm/dL (12-16) 11/09/18 15:38 Hct 42.3 % (41.0-60) 11/09/18 15:38 MCV 96.1 fl (80-99) 11/09/18 15:38 MCH 32.4 pg (26.0-30.0) H 11/09/18 15:38 MCHC Differential 33.7 pg (28.0-36.0) 11/09/18 15:38 RDW 12.9 % (11.5-20.0) 11/09/18 15:38 Plt Count 216 Th/cmm (150-400) 11/09/18 15:38 MPV 6.5 fl 11/09/18 15:38 Neutrophils % 53.7 % (40.0-80.0) 11/09/18 15:38 Lymphocytes % 37.0 % (20.0-50.0) 11/09/18 15:38 Monocytes % 8.2 % (2.0-10.0) 11/09/18 15:38 Eosinophils % 0.7 % (0.0-5.0) 11/09/18 15:38 Basophils % 0.4 % (0.0-2.0) 11/09/18 15:38 Sodium 140 mEq/L (136-145) 11/09/18 15:38 Potassium 4.2 mEq/L (3.5-5.1) 11/09/18 15:38 Chloride 107 mEq/L (98-107) 11/09/18 15:38 Carbon Dioxide 24.6 mEq/L (21.0-31.0) 11/09/18 15:38 Anion Gap 12.6 (7.0-16.0) 11/09/18 15:38 BUN 34 mg/dL (7-25) H 11/09/18 15:38 Creatinine 0.8 mg/dL (0.7-1.3) 11/09/18 15:38 Est GFR ( Amer) > 60.0 ml/min (>90) 11/09/18 15:38 Est GFR (Non-Af Amer) > 60.0 ml/min 11/09/18 15:38 BUN/Creatinine Ratio 42.5 11/09/18 15:38 Glucose 94 mg/dL (70-105) 11/09/18 15:38 Calcium 9.3 mg/dL (8.6-10.3) 11/09/18 15:38 Total Bilirubin 0.3 mg/dL (0.3-1.0) 11/09/18 15:38 AST 13 U/L (13-39) 11/09/18 15:38 ALT 10 U/L (7-52) 11/09/18 15:38 Alkaline Phosphatase 49 U/L (34-104) 11/09/18 15:38 Troponin I 0.01 ng/mL (0.01-0.05) 11/09/18 15:38 B-Natriuretic Peptide 20.9 pg/mL (5.0-100.0) 11/09/18 15:38 Total Protein 6.3 gm/dL (6.0-8.3) 11/09/18 15:38 Albumin 4.0 gm/dL (4.2-5.5) L 11/09/18 15:38 Globulin 2.3 gm/dL 11/09/18 15:38 Albumin/Globulin Ratio 1.7 (1.0-1.8) 11/09/18 15:38 Triglycerides 106 mg/dL (<150) 11/09/18 15:38 Cholesterol 153 mg/dL (<200) 11/09/18 15:38 LDL Cholesterol Direct 89 mg/dL (75-193) 11/09/18 15:38 HDL Cholesterol 47 mg/dL (23-92) 11/09/18 15:38 TSH 0.47 uIU/ml (0.34-5.60) 11/09/18 15:38 - Physical Exam Vitals and I&O: Vital Signs Temp 97.5 F 11/15/18 06:17 Pulse 53 11/15/18 06:17 Resp 18 11/15/18 10:47 BP 104/57 11/15/18 06:17 Pulse Ox 97 11/15/18 06:17 Intake & Output 11/14/181811/15/18 18:59 06:59 18:59 Intake Total 160 Balance 160 Intake: Oral 160 Other: # Voids 2 # Bowel Movements 0 Active Medications: Current Medications Acetaminophen (Tylenol) 650 mg PO Q4HR PRN PRN Reason: Mild Pain / Temp above 100 Stop: 01/08/19 20:14 Benztropine Mesylate (Cogentin) 1 mg PO BID SADAF Stop: 01/09/19 08:59 Last Admin: 11/15/18 08:27 Dose: 1 mg Divalproex Sodium (Depakote Dr) 750 mg PO BID SADAF; Protocol Stop: 01/09/19 08:59 Last Admin: 11/15/18 08:24 Dose: 750 mg Lorazepam (Ativan) 0.5 mg PO Q4HR PRN; Protocol PRN Reason: Anxiety Stop: 12/09/18 20:14 Last Admin: 11/15/18 08:27 Dose: 0.5 mg Niacin (Vitamin B3) 500 mg PO DAILY SADAF Stop: 01/10/19 08:59 Last Admin: 11/15/18 08:27 Dose: 500 mg Quetiapine Fumarate (Seroquel) 400 mg PO HS SADAF; Protocol Stop: 01/08/19 20:59 Last Admin: 11/14/18 20:49 Dose: 400 mg Simvastatin (Zocor) 20 mg PO HS SADAF; Protocol Stop: 01/09/19 20:59 Last Admin: 11/14/18 20:49 Dose: 20 mg Zolpidem Tartrate (Ambien) 5 mg PO HS PRN PRN Reason: Insomnia Stop: 01/08/19 20:14 General: alert HEENT: NC/AT, PERRLA, EOMI Neck: Supple, No JVD Lungs: wheezing Cardiovascular: RRR, Normal S1, Normal S2 Abdomen: soft, non-tender, thin Extremities: excoriation Neurological: no change Internal Medicine Assmt/Plan - Assessment Assessment: ASSESSMENT AND PLAN: 1. Renal insufficiency. 2. Dementia. 3. Schizoaffective disorder. 4. Hypercholesterolemia - Plan Plan: PLAN: Continue the patient on statin medications. We will review the patient's laboratory. Continue low fat, low cholesterol diet. The patient was counseled to abstain from further smoking. We will continue to follow with you.
--- NOTE | 2018-11-15 23:02 | Progress Notes ---
DATE: 11/15/2018 PSYCHIATRIC PROGRESS NOTE SUBJECTIVE: Staff was spoken to. The patient is interviewed. Mood is noted to be irritable. Affect is constricted. The patient's paranoia is noted, but the patient denies any command hallucinations. The patient is able to comply with the medication so far. No side effects to the medications are noted. ASSESSMENT: The patient is still psychotic. PLAN: To continue the patient with the supportive therapy, encouraged the patient to verbalize the concerns rather than to act out. Please note that the patient is not ready to be discharged to a lower level of care yet. JOB# [id number]
--- NOTE | 2018-11-16 00:06 | Progress Notes ---
DATE: 11/14/2018 PSYCHOLOGY PROGRESS NOTE. SUBJECTIVE: The patient is seen and is interviewed. Case is discussed with staff. The patient presents as anxious and somewhat restless. The staff reports the patient continues to talk to himself. The patient apparently is responding to internal stimuli. The patient also has been isolative and not participating in the milieu therapy. The patient states that he does not feel he needs to be here. OBJECTIVE: Mood is anxious. Affect is mood congruent. Thought process shows to be somewhat confused. The patient denied any hallucinations or delusions, however, the patient is responding to an inner dialogue. The patient is taking his p.o. medications. ASSESSMENT AND PLAN: The patient's psychosis persists. We provided reality orientation, differentiation and integration. We provided positive reinforcement for the patient to stay compliant with his care and treatment. We will follow up in 2 days to continue the present treatment if the patient is still admitted on the unit. JOB# [id number] TAY
[2018-11-16] MEDS: Benztropine 1 MG TAB PO SCH ×2 (08:16→15:59)
[2018-11-16] MEDS: DIVALPROEX PO SCH ×2 (08:16→15:59)
--- NOTE | 2018-11-16 12:20 | Internal Medicine Prog Note ---
Internal Medicine Subjective - Subjective Patient seen and examined:: with staff, chart reviewed Patient is:: awake, verbal, interactive Patient Complaints of:: sore throat Per staff patient has:: no adverse event, no episodes of fall, poor appetite Internal Medicine Objective - Results Result Diagrams: 11/09/18 15:38 11/09/18 15:38 Recent Labs: Laboratory Last Values WBC 6.7 Th/cmm (4.8-10.8) 11/09/18 15:38 RBC 4.41 Mil/cmm (4.30-5.70) 11/09/18 15:38 Hgb 14.3 gm/dL (12-16) 11/09/18 15:38 Hct 42.3 % (41.0-60) 11/09/18 15:38 MCV 96.1 fl (80-99) 11/09/18 15:38 MCH 32.4 pg (26.0-30.0) H 11/09/18 15:38 MCHC Differential 33.7 pg (28.0-36.0) 11/09/18 15:38 RDW 12.9 % (11.5-20.0) 11/09/18 15:38 Plt Count 216 Th/cmm (150-400) 11/09/18 15:38 MPV 6.5 fl 11/09/18 15:38 Neutrophils % 53.7 % (40.0-80.0) 11/09/18 15:38 Lymphocytes % 37.0 % (20.0-50.0) 11/09/18 15:38 Monocytes % 8.2 % (2.0-10.0) 11/09/18 15:38 Eosinophils % 0.7 % (0.0-5.0) 11/09/18 15:38 Basophils % 0.4 % (0.0-2.0) 11/09/18 15:38 Sodium 140 mEq/L (136-145) 11/09/18 15:38 Potassium 4.2 mEq/L (3.5-5.1) 11/09/18 15:38 Chloride 107 mEq/L (98-107) 11/09/18 15:38 Carbon Dioxide 24.6 mEq/L (21.0-31.0) 11/09/18 15:38 Anion Gap 12.6 (7.0-16.0) 11/09/18 15:38 BUN 34 mg/dL (7-25) H 11/09/18 15:38 Creatinine 0.8 mg/dL (0.7-1.3) 11/09/18 15:38 Est GFR ( Amer) > 60.0 ml/min (>90) 11/09/18 15:38 Est GFR (Non-Af Amer) > 60.0 ml/min 11/09/18 15:38 BUN/Creatinine Ratio 42.5 11/09/18 15:38 Glucose 94 mg/dL (70-105) 11/09/18 15:38 Calcium 9.3 mg/dL (8.6-10.3) 11/09/18 15:38 Total Bilirubin 0.3 mg/dL (0.3-1.0) 11/09/18 15:38 AST 13 U/L (13-39) 11/09/18 15:38 ALT 10 U/L (7-52) 11/09/18 15:38 Alkaline Phosphatase 49 U/L (34-104) 11/09/18 15:38 Troponin I 0.01 ng/mL (0.01-0.05) 11/09/18 15:38 B-Natriuretic Peptide 20.9 pg/mL (5.0-100.0) 11/09/18 15:38 Total Protein 6.3 gm/dL (6.0-8.3) 11/09/18 15:38 Albumin 4.0 gm/dL (4.2-5.5) L 11/09/18 15:38 Globulin 2.3 gm/dL 11/09/18 15:38 Albumin/Globulin Ratio 1.7 (1.0-1.8) 11/09/18 15:38 Triglycerides 106 mg/dL (<150) 11/09/18 15:38 Cholesterol 153 mg/dL (<200) 11/09/18 15:38 LDL Cholesterol Direct 89 mg/dL (75-193) 11/09/18 15:38 HDL Cholesterol 47 mg/dL (23-92) 11/09/18 15:38 TSH 0.47 uIU/ml (0.34-5.60) 11/09/18 15:38 - Physical Exam Vitals and I&O: Vital Signs Temp 98.3 F 11/16/18 06:15 Pulse 53 11/16/18 06:15 Resp 18 11/16/18 08:00 BP 96/60 11/16/18 06:15 Pulse Ox 98 11/16/18 06:15 Intake & Output 11/15/18 11/16/18 11/16/18 18:59 06:59 18:59 Intake Total 1100 300 Balance 1100 300 Intake: Oral 980 300 Other 120 Other: # Voids 3 1 # Bowel Movements 1 0 Active Medications: Current Medications Acetaminophen (Tylenol) 650 mg PO Q4HR PRN PRN Reason: Mild Pain / Temp above 100 Stop: 01/08/19 20:14 Benztropine Mesylate (Cogentin) 1 mg PO BID SADAF Stop: 01/09/19 08:59 Last Admin: 11/16/18 08:16 Dose: 1 mg Divalproex Sodium 250 mg/ (Divalproex Sodium 500 mg) 750 mg PO BID SADAF Stop: 01/15/19 08:59 Last Admin: 11/16/18 08:16 Dose: 750 mg Lorazepam (Ativan) 0.5 mg PO Q4HR PRN; Protocol PRN Reason: Anxiety Stop: 12/09/18 20:14 Last Admin: 11/15/18 08:27 Dose: 0.5 mg Niacin (Vitamin B3) 500 mg PO DAILY SADAF Stop: 01/10/19 08:59 Last Admin: 11/16/18 08:16 Dose: 500 mg Quetiapine Fumarate (Seroquel) 400 mg PO HS SADAF; Protocol Stop: 01/08/19 20:59 Last Admin: 11/15/18 20:13 Dose: 400 mg Simvastatin (Zocor) 20 mg PO HS SADAF; Protocol Stop: 01/09/19 20:59 Last Admin: 11/15/18 20:13 Dose: 20 mg Zolpidem Tartrate (Ambien) 5 mg PO HS PRN PRN Reason: Insomnia Stop: 01/08/19 20:14 General: alert HEENT: NC/AT, PERRLA, EOMI Neck: Supple, No JVD Lungs: wheezing Cardiovascular: RRR, Normal S1, Normal S2 Abdomen: soft, non-tender, thin Extremities: excoriation Neurological: no change Internal Medicine Assmt/Plan - Assessment Assessment: ASSESSMENT AND PLAN: 1. Renal insufficiency. 2. Dementia. 3. Schizoaffective disorder. 4. Hypercholesterolemia - Plan Plan: PLAN: Continue the patient on statin medications. We will review the patient's laboratory. Continue low fat, low cholesterol diet. The patient was counseled to abstain from further smoking. We will continue to follow with you.
--- NOTE | 2018-11-16 23:28 | Progress Notes ---
DATE: 11/16/2018 PSYCHOLOGY PROGRESS NOTE SUBJECTIVE: The patient is seen and is interviewed. Case is discussed with staff. The patient continues to present as irritable. The patient is using profanity towards one of the nurses. The patient's paranoid ideation continues. The patient is guarded and suspicious. OBJECTIVE: Mood is irritable. Affect is constricted. Thought process includes paranoia. The patient denied any auditory or visual hallucinations. The patient is compliant with the medication thus far. The patient is difficult to redirect and is verbally aggressive towards the female staff with use of profanity. ASSESSMENT AND PLAN: The patient's psychosis persists as well as the patient's agitation. We provided limit setting as well as boundary awareness and definitions, so that the patient may be able to increase his frustration tolerance and to verbalize his concerns versus acting out. We provided reality integration. We provided remotivation for compliance with care. We provided coping strategies for chronic mental illness as well as phase of life issues. We will follow up in 2 days to continue the present treatment if the patient remains on the unit. JOB# [id number] TAY
--- NOTE | 2018-11-17 02:10 | Progress Notes ---
DATE: 11/16/2018 PSYCHIATRIC PROGRESS NOTE SUBJECTIVE: Staff was spoken to. The patient is interviewed. Mood is noted to be irritable. Affect is constricted. Insight and judgment are noted to be still impaired. Impulse control is noted to be improving. The patient denies any command hallucinations, but the patient has paranoia. No side effects to the medications are noted at this time. ASSESSMENT: The patient's psychosis is resolving. PLAN: To continue the patient with supportive therapy. I encouraged the patient to verbalize the concerns rather than to act out. [facility]# [id number]
[2018-11-17] MEDS: Benztropine 1 MG TAB PO SCH (08:38)
[2018-11-17] MEDS: DIVALPROEX PO SCH (08:38)
--- NOTE | 2018-11-17 12:19 | Internal Medicine Prog Note ---
Internal Medicine Subjective - Subjective Patient seen and examined:: with staff, chart reviewed Patient is:: awake, verbal, interactive Patient Complaints of:: sore throat Per staff patient has:: no adverse event, no episodes of fall, poor appetite Internal Medicine Objective - Results Result Diagrams: 11/09/18 15:38 11/09/18 15:38 Recent Labs: Laboratory Last Values WBC 6.7 Th/cmm (4.8-10.8) 11/09/18 15:38 RBC 4.41 Mil/cmm (4.30-5.70) 11/09/18 15:38 Hgb 14.3 gm/dL (12-16) 11/09/18 15:38 Hct 42.3 % (41.0-60) 11/09/18 15:38 MCV 96.1 fl (80-99) 11/09/18 15:38 MCH 32.4 pg (26.0-30.0) H 11/09/18 15:38 MCHC Differential 33.7 pg (28.0-36.0) 11/09/18 15:38 RDW 12.9 % (11.5-20.0) 11/09/18 15:38 Plt Count 216 Th/cmm (150-400) 11/09/18 15:38 MPV 6.5 fl 11/09/18 15:38 Neutrophils % 53.7 % (40.0-80.0) 11/09/18 15:38 Lymphocytes % 37.0 % (20.0-50.0) 11/09/18 15:38 Monocytes % 8.2 % (2.0-10.0) 11/09/18 15:38 Eosinophils % 0.7 % (0.0-5.0) 11/09/18 15:38 Basophils % 0.4 % (0.0-2.0) 11/09/18 15:38 Sodium 140 mEq/L (136-145) 11/09/18 15:38 Potassium 4.2 mEq/L (3.5-5.1) 11/09/18 15:38 Chloride 107 mEq/L (98-107) 11/09/18 15:38 Carbon Dioxide 24.6 mEq/L (21.0-31.0) 11/09/18 15:38 Anion Gap 12.6 (7.0-16.0) 11/09/18 15:38 BUN 34 mg/dL (7-25) H 11/09/18 15:38 Creatinine 0.8 mg/dL (0.7-1.3) 11/09/18 15:38 Est GFR ( Amer) > 60.0 ml/min (>90) 11/09/18 15:38 Est GFR (Non-Af Amer) > 60.0 ml/min 11/09/18 15:38 BUN/Creatinine Ratio 42.5 11/09/18 15:38 Glucose 94 mg/dL (70-105) 11/09/18 15:38 Calcium 9.3 mg/dL (8.6-10.3) 11/09/18 15:38 Total Bilirubin 0.3 mg/dL (0.3-1.0) 11/09/18 15:38 AST 13 U/L (13-39) 11/09/18 15:38 ALT 10 U/L (7-52) 11/09/18 15:38 Alkaline Phosphatase 49 U/L (34-104) 11/09/18 15:38 Troponin I 0.01 ng/mL (0.01-0.05) 11/09/18 15:38 B-Natriuretic Peptide 20.9 pg/mL (5.0-100.0) 11/09/18 15:38 Total Protein 6.3 gm/dL (6.0-8.3) 11/09/18 15:38 Albumin 4.0 gm/dL (4.2-5.5) L 11/09/18 15:38 Globulin 2.3 gm/dL 11/09/18 15:38 Albumin/Globulin Ratio 1.7 (1.0-1.8) 11/09/18 15:38 Triglycerides 106 mg/dL (<150) 11/09/18 15:38 Cholesterol 153 mg/dL (<200) 11/09/18 15:38 LDL Cholesterol Direct 89 mg/dL (75-193) 11/09/18 15:38 HDL Cholesterol 47 mg/dL (23-92) 11/09/18 15:38 TSH 0.47 uIU/ml (0.34-5.60) 11/09/18 15:38 - Physical Exam Vitals and I&O: Vital Signs Temp 97.1 F 11/17/18 06:39 Pulse 60 11/17/18 06:39 Resp 20 11/17/18 06:39 BP 114/62 11/17/18 06:39 Pulse Ox 98 11/17/18 06:39 Intake & Output 11/16/18 11/17/18 11/17/18 18:59 06:59 18:59 Intake Total 1200 120 Balance 1200 120 Intake: Oral 1080 120 Other 120 Other: # Voids 4 2 # Bowel Movements 0 Active Medications: Current Medications Acetaminophen (Tylenol) 650 mg PO Q4HR PRN PRN Reason: Mild Pain / Temp above 100 Stop: 01/08/19 20:14 Benztropine Mesylate (Cogentin) 1 mg PO BID SADAF Stop: 01/09/19 08:59 Last Admin: 11/17/18 08:38 Dose: 1 mg Divalproex Sodium 250 mg/ (Divalproex Sodium 500 mg) 750 mg PO BID SADAF Stop: 01/15/19 08:59 Last Admin: 11/17/18 08:38 Dose: 750 mg Lorazepam (Ativan) 0.5 mg PO Q4HR PRN; Protocol PRN Reason: Anxiety Stop: 12/09/18 20:14 Last Admin: 11/15/18 08:27 Dose: 0.5 mg Niacin (Vitamin B3) 500 mg PO DAILY SADAF Stop: 01/10/19 08:59 Last Admin: 11/17/18 08:38 Dose: 500 mg Quetiapine Fumarate (Seroquel) 400 mg PO HS SADAF; Protocol Stop: 01/08/19 20:59 Last Admin: 11/16/18 21:11 Dose: 400 mg Simvastatin (Zocor) 20 mg PO HS SADAF; Protocol Stop: 01/09/19 20:59 Last Admin: 11/16/18 21:11 Dose: 20 mg Zolpidem Tartrate (Ambien) 5 mg PO HS PRN PRN Reason: Insomnia Stop: 01/08/19 20:14 General: alert HEENT: NC/AT, PERRLA, EOMI Neck: Supple, No JVD Lungs: wheezing Cardiovascular: RRR, Normal S1, Normal S2 Abdomen: soft, non-tender, thin Extremities: excoriation Neurological: no change Internal Medicine Assmt/Plan - Assessment Assessment: ASSESSMENT AND PLAN: 1. Renal insufficiency. 2. Dementia. 3. Schizoaffective disorder. 4. Hypercholesterolemia - Plan Plan: PLAN: Continue the patient on statin medications. We will review the patient's laboratory. Continue low fat, low cholesterol diet. The patient was counseled to abstain from further smoking. We will continue to follow with you. Nutritional Asmnt/Malnutr-PDOC - Dietary Evaluation Malnutrition Findings (Please click <Entered> for more info): Nutritional Asmnt/Malnutrition Start: 11/16/18 16: 36 Text: Status: Active Freq: Protocol: Document 11/16/18 16:36 [email or web address] (Rec: 11/16/18 17:04 [email or web address] [id number]) Nutritional Asmnt/Malnutrition Patient General Information Nutritional Screening Low Risk Diagnosis PSYCHOSIS Pertinent Medical Hx/Surgical Hx HYPERGLYCEMIA, PSYCH DISORDER, DEMENTIA. SURGICAL HX: ABDOMINAL SURGERY . Subjective Information 58 YEAR OLD MALE ADMITTED FROM [facility] WITH AGITATED BEHAVIOR /ACUTE PSYCHOSIS. I/O: 1400 ESTIMATED ENERGY NEEDS: CBW (ADULT, NON CRITICAL) 4290-7440 KCALS 53-59 G PRO 0226-2924 ML FLUIDS DIETARY IS PROVIDING AN ESTIMATED 2611 KCALS AND 95 G PRO. PT PO INTAKE IS 75-100%, MEETING 100% KCAL AND 100% PRO NEEDS. PT LR, F/U IN 7 DAYS. Current Diet Order/ Nutrition Support REGULAR Pertinent Medications NIACIN, ZOCOR Pertinent Labs 11/09: BUN/CR 34/0.8, ALB 4.0 Nutritional Hx/Data Height 1.7 m Height (Calculated Centimeters) 170.2 Current Weight (lbs) 65.771 kg Weight (Calculated Kilograms) 65.8 Weight (Calculated Grams) 75490.9 [place] Body Weight 148 LB % [place] Body Weight 98 Body Mass Index (BMI) 22.7 Weight Status Approriate GI Symptoms GI Symptoms None Last BM 11/14 X1 Difficult in: None Skin Integrity/Comment: N/A Current %PO Good (75-100%) Estimated Nutritional Goals BEE in Kcals: Using Current wt Calories/Kcals/Kg 25-30 Kcals Calculated 6479-3485 Protein: Using Current wt Protein g/k.8-0.9 Protein Calculated 53-59 Fluid: ml 6970-0225 Nutritional Problem No current Nutrition Prob Problem N/A Etiology N/A Signs/Symptoms: N/A Malnutrition Related to Morbid Obesity Malnutrition related to morbid obesity No Intervention/Recommendation Comments 1. Continue with regular diet as ordered. 2. Monitor PO intake, wt, labs and skin integrity. 3. F/U as LR, see Pt in 7 days . Expected Outcomes/Goals Expected Outcomes/Goals 1. Pt to continue to meet >75% energy needs within 7 days.
--- NOTE | 2018-11-17 22:16 | Discharge Summary ---
DATE OF DISCHARGE: 11/17/2018 PSYCHIATRIC DISCHARGE SUMMARY IDENTIFYING DATA: The patient is a 58-year-old male, resident of [facility]. JUSTIFICATION OF HOSPITALIZATION: The patient is admitted on a voluntary basis in view of his acute psychosis. DIAGNOSES AT THE TIME OF ADMISSION: AXIS I: Schizophrenia, chronic paranoid type with acute exacerbation. AXIS II: None. AXIS III: None. HISTORY OF PRESENT ILLNESS: Please refer to the 11/09/2018 dictation done by me. Physical examination at the time of the request was done by Dr. Harris. HOSPITAL COURSE AND RESPONSE TO TREATMENT: The patient has been observed on inpatient unit, provided with supportive psychotherapy. The patient has been continued on the valproic acid 750 mg twice a day and Seroquel was given 400 mg at bedtime. The patient has been closely monitored and was noted to be doing fairly well and hence was discharged on 11/18/2018 with recommendation that he is going to be seeking treatment on an outpatient basis. MENTAL STATUS EXAMINATION: At the time of the discharge, the patient's mood is noted to be less irritable. Affect is appropriate. Not suicidal or homicidal. Coping skills are noted to be improving. The patient denies any current hallucinations, but the patient has paranoia, not noted to be a danger to self or others. DIAGNOSES AT THE TIME OF DISCHARGE: AXIS I: Schizophrenia, chronic paranoid type. AXIS II: None. AXIS III: As per Dr. Harris. AFTERCARE PLAN: The patient is discharged to [facility] for further followup. [facility]# [id number]
== END 2018-11-17 15:25 | DRG 885 ==
LOC: ER 14:36 → GERO 16:52
DX: F20.0 Paranoid schizophrenia (principal); N28.9 Disorder of kidney and ureter, unspecified; F03.90 Unspecified dementia, unspecified severity, without behavioral disturbance, psychotic disturbance, mood disturbance, and anxiety; F29 Unspecified psychosis not due to a substance or known physiological condition; F41.9 Anxiety disorder, unspecified; E78.00 Pure hypercholesterolemia, unspecified
CPT/HCPCS: 36415-UA; 71045-TC; 80053-TC; 80061-TC; 83036-90; 83880-TC; 84443-TC; 84484-TC; 85025-TC; 93005; G0410; J2060; Z7610